=== PATIENT | male | born 1950 ===

== ENCOUNTER 2022-01-27 08:00 | Outpatient (CLI) | payer MEDICARE ==
[2022-01-27 14:58] LABS: THYROID STIMULATING HORMONE 2.53 uIU/mL (0.34-5.60)
== END 2022-01-27 23:59 | disposition home or self-care (01) ==
LOC: LAB.S 08:00
PROVIDERS: ATTEND Physician Assistant Medical
DX: H53.9 Unspecified visual disturbance (principal)
CPT/HCPCS: 36415; 84443